=== PATIENT | female | born 1945 | race Caucasian/White ===

== ENCOUNTER 2023-03-18 15:25 | Emergency (ER) | payer OTHER, MEDICARE ==
[2023-03-18 16:03] LABS: #Basophils 0.1 thou/uL (0.0-0.2); #Eosinphils 0.1 thou/uL (0.0-0.7); #Monocytes 0.5 thou/uL (0.11-0.59); #Neutrophils 5.8 thou/uL (1.40-6.50); %Basophils 0.8 % (0.0-1.0); %Lymphocytes 23.9 % (21.0-51.0); %Monocytes 5.4 % (0.0-10.0); %Neutrophils 68.9 % (42.0-75.0); Hemoglobin 13.5 g/dL (12.0-16.0); Mean Corpuscular HGB CONC 34.6 g/dL (32.0-36.0); Mean Corpuscular Hemoglobin 29.7 pg (27.0-31.0); Mean Corpuscular Volume 85.9 fl (78.0-98.0); Mean Platelet Volume 6.6 fL (7.4-10.4); Platelet Count 425 10x3/uL (130-400); RBC Distribution Width 11.1 % (11.5-14.5); Red Blood Cell (RBC) Count 4.54 mill/uL (4.20-5.40); White Blood Cell (WBC) Count 8.3 10x3/uL (4.8-10.8)
[2023-03-18 16:19] LABS: ALT (SGPT) 15 U/L (8-55); AST (SGOT) 11 U/L (5-34); Albumin 4.2 g/dL (3.4-4.8); Alkaline Phosphatase 124 U/L (40-110); Anion Gap 18 mmol/L (10-20); BUN (Urea Nitrogen) 44 mg/dL (9.8-20.1); Bilirubin, Total 0.6 mg/dL (0.2-1.2); CK (CPK) 52 U/L (29-168); Calc. Creatinine Clearance 0 mL/min (70-130); Calcium 9.5 mg/dL (7.8-10.44); Carbon Dioxide 29 mmol/L (23-31); Chloride 90 mmol/L (98-107); Estimated GFR 27; Globulin 2.8 g/dL (2.4-3.5); Glucose 306 mg/dL (83-110); Magnesium 1.8 mg/dL (1.6-2.6); Potassium 4.2 mmol/L (3.5-5.1); Sodium 133 mmol/L (136-145)
[2023-03-18] MEDS ORDERED: Acetaminophen 500 MG TAB ONE (16:46)
[2023-03-18] MEDS ORDERED: HyperTET 250 UNITS/ML 1 ML SYRINGE ONE (16:47)
[2023-03-18 18:10] LABS: Bilirubin Negative (Negative); Blood, Urine Negative (Negative); Glucose, Urine (Dipstick) Negative (Negative); Ketone, Urine Negative (Negative); Leukocyte Small (Negative); Nitrite Negative (Negative); Protein, Urine (Dipstick) Negative (Neg-Trace); Urobilinogen 0.2 mg/dL (Less than 2); pH, Urine 5.5 (5.0-9.0)
[2023-03-18 18:15] LABS: Clarity Hazy (Clear)
[2023-03-18 18:16] LABS: Bacteria/HPF 3+ HPF (None Seen); CAUTI Indications for Culture Dysuria,urgency,freq; RBC/HPF 0-3 HPF (0-3)
[2023-03-18 18:17] LABS: Urine Culture Reflex Yes Yes
== END 2023-03-18 19:00 | disposition home or self-care (01) ==
LOC: BURERS 15:25
DX: S52.572A Other intraarticular fracture of lower end of left radius, initial encounter for closed fracture (principal); S52.612A Displaced fracture of left ulna styloid process, initial encounter for closed fracture; E86.0 Dehydration; N39.0 Urinary tract infection, site not specified; I25.2 Old myocardial infarction; I12.0 Hypertensive chronic kidney disease with stage 5 chronic kidney disease or end stage renal disease; E11.22 Type 2 diabetes mellitus with diabetic chronic kidney disease; N18.6 End stage renal disease; E78.00 Pure hypercholesterolemia, unspecified; W05.0XXA Fall from non-moving wheelchair, initial encounter; Y92.481 Parking lot as the place of occurrence of the external cause; Z85.3 Personal history of malignant neoplasm of breast
CPT/HCPCS: 25605; 36415; 70450; 71045; 80053; 81001; 82550; 83735; 83880; 84484; 85025; 87086; 93005; 94760; J1670

== ENCOUNTER 2025-07-20 14:58 | Inpatient (IN) | payer MEDICARE ==
[2025-07-20 17:45] VITALS: BMI 23.7
[2025-07-20] MEDS ORDERED: Dextrose 50% Abboject 50 ML SYRINGE SLOW IVP PRN (18:27)
[2025-07-20] MEDS ORDERED: Glucagon 1 MG/ML KIT IM PRN (18:27)
[2025-07-21] MEDS: Acetaminophen 500 MG TAB PO PRN (01:43)
[2025-07-21 05:09] LABS: #Basophils 0.1 thou/uL (0.0-0.2); #Eosinophils 0.2 thou/uL (0.0-0.7); #Lymphocytes 2.1 thou/uL (1.20-3.40); #Monocytes 0.7 thou/uL (0.11-0.59); #Neutrophils 6.2 thou/uL (1.40-6.50); %Basophils 1.2 % (0.0-1.0); %Eosinophils 1.9 % (0.0-10.0); %Lymphocytes 23.1 % (21.0-51.0); %Monocytes 7.2 % (0.0-10.0); %Neutrophils 66.6 % (42.0-75.0); Hematocrit 38.0 % (36.0-47.0); Hemoglobin 12.7 g/dL (12.0-16.0); Mean Corpuscular Hemoglobin 29.8 pg (27.0-31.0); Mean Corpuscular Volume 89.1 fl (78.0-98.0); Platelet Count 380 10x3/uL (130-400); Red Blood Cell (RBC) Count 4.26 mill/uL (4.20-5.40); White Blood Cell (WBC) Count 9.2 10x3/uL (4.8-10.8)
[2025-07-21 05:22] LABS: ALT (SGPT) Less than 7 U/L (Less than 34); AST (SGOT) 13 U/L (11-34); Albumin 3.1 g/dL (3.1-4.5); Alkaline Phosphatase 85 U/L (40-110); Anion Gap 15 mmol/L (10-20); BUN (Urea Nitrogen) 22 mg/dL (9.8-20.1); Bilirubin, Total 0.4 mg/dL (0.3-1.2); Calc. Creatinine Clearance 38 mL/min (70-130); Calcium 8.8 mg/dL (7.8-10.44); Carbon Dioxide 24 mmol/L (23-31); Chloride 98 mmol/L (98-107); Globulin 3.1 g/dL (2.4-3.5); Glucose 139 mg/dL (83-110); Potassium 4.1 mmol/L (3.5-5.1); Sodium 133 mmol/L (136-145)
[2025-07-21] MEDS: Furosemide 20 MG TAB PO SCH (09:36)
[2025-07-21] MEDS: Multivitamin W/ Minerals 1 TAB PO SCH (09:37)
[2025-07-21] MEDS: Pantoprazole 40 MG DR.TAB PO SCH (09:37)
[2025-07-21] MEDS: Carvedilol 25 MG TAB PO SCH (09:37)
[2025-07-21] MEDS: Enoxaparin 30 MG (0.3 mL) SYRINGE SC SCH (09:37)
[2025-07-21] MEDS: NIFEdipine XL 30 MG ER.TAB PO SCH (09:37)
[2025-07-21] MEDS: Aspirin 81 mg Enteric Coated Tablet PO SCH (09:37)
[2025-07-21] MEDS: Lantus 1000 UNITS/10 ML VIAL SC SCH (09:42)
[2025-07-21 15:16] VITALS: BMI 23.7
[2025-07-22] MEDS: Enoxaparin 40 MG (0.4 mL) SYRINGE SC SCH (09:25)
[2025-07-23] MEDS: FLU (Fluad Triv) 25-26 (65UP)PF 45 MCG/0.5 ML Syringe IM ONE (17:54)
[2025-07-23] MEDS: Calcium Carbonate 500 MG ChewTAB PO PRN (21:18)
[2025-07-24] MEDS: Calcium Carbonate 500 MG ChewTAB PO PRN (14:13)
[2025-07-25] MEDS: OMEPRAZOLE 40 MG PO SCH (16:35)
[2025-08-02] MEDS: Guaifenesin DM 100-10/5 ML UDCUP PO PRN (12:15)
[2025-08-04 05:20] VITALS: TEMP 97.7
[2025-08-04 09:23] VITALS: BP 185/89
== END 2025-08-04 16:10 | disposition home health service (06) | DRG 945 ==
LOC: BURMED 17:07
PROVIDERS: ADMIT Family Medicine; ATTEND Family Medicine
PROC: F07Z5ZZ Bed Mobility Treatment (ICD-10-PCS; principal; 2025-07-21)
PROC: F08Z0ZZ Bathing/Showering Techniques Treatment (ICD-10-PCS; 2025-07-21)
PROC: 3E0234Z Introduction of Serum, Toxoid and Vaccine into Muscle, Percutaneous Approach (ICD-10-PCS; 2025-07-23)
DX: R53.81 Other malaise (principal); N39.0 Urinary tract infection, site not specified; Z16.12 Extended spectrum beta lactamase (ESBL) resistance; I25.10 Atherosclerotic heart disease of native coronary artery without angina pectoris; E11.9 Type 2 diabetes mellitus without complications; E03.9 Hypothyroidism, unspecified; Z79.899 Other long term (current) drug therapy; Z79.82 Long term (current) use of aspirin; E78.5 Hyperlipidemia, unspecified; F41.9 Anxiety disorder, unspecified; F32.A Depression, unspecified; Z85.3 Personal history of malignant neoplasm of breast; Z92.21 Personal history of antineoplastic chemotherapy; Z92.3 Personal history of irradiation; Z98.890 Other specified postprocedural states; Z95.1 Presence of aortocoronary bypass graft; R26.89 Other abnormalities of gait and mobility; N18.30 Chronic kidney disease, stage 3 unspecified; I12.9 Hypertensive chronic kidney disease with stage 1 through stage 4 chronic kidney disease, or unspecified chronic kidney disease; A49.9 Bacterial infection, unspecified; Z23 Encounter for immunization
CPT/HCPCS: 36415; 36416; 80053; 85025; 90653; J1650; J1815; Q0162